=== PATIENT | male | born 1950 | race Caucasian/White ===

== ENCOUNTER 2018-03-19 19:53 | Inpatient (IN) | payer MEDICARE, MEDICAID ==
--- NOTE | 2018-03-19 20:02 | ED Physician Chart ---
ED Chief Complaint/HPI - Patient Information Date Seen:: 03/19/18 Time Seen:: 19:55 Chief Complaint:: agitation History of Present Illness:: Patient's been exhibiting increased agitation at his extended care facility. He has reportedly been yelling a passerby's Historian:: Patient Review:: Nurse's Note Reviewed ED Review of Systems - Review of Systems General/Constitutional: No fever, No chills Skin: No skin lesions Head: No headache Eyes: No loss of vision ENT: No earache Neck: No neck pain, No swelling Cardio Vascular: No chest pain, No palpitations Pulmonary: No SOB GI: No nausea, No vomiting, No diarrhea G/U: No dysuria Musculoskeletal: No bone or joint pain, No back pain, No muscle pain Psychiatric: Prior psych history Hematopoietic: No bruising Allergic/Immuno: No urticaria Neurological: No syncope, No focal symptoms, No weakness ED Past Medical History - Past Medical History Past Medical History: PUD/GERD, Dementia, Other (status post pneumonia; psychosis; anxiety; benign prostatic hypertrophy; cataracts) Family History: Other (unavailable) Social History: Care Facility Surgical History: other (unavailable) Psychiatricy History: Dementia Family Medical History - Family Member Mother History Unknown: Yes ED Physical Exam - Physical Examination General/Constitutional: Alert Other Gen/Cons comments:: Mildly chronically ill-appearing. Patient is confused. He states the year is 1974 Head: Atraumatic Eyes: Lids, conjuctiva normal, PERRL Skin: Nl inspection, No rash, No skin lesions, No ecchymosis ENMT: External ears, nose nl Neck: Nontender Respiratory: Nl effort/Exclusion, Clear to Auscultation Cardio Vascular: RRR, No murmur, gallop, rubs GI: No tenderness/rebounding/guarding, No organomegaly Extremities: Normal digits & nails Neuro/Psych: No focal deficits ED Labs/Radiology/EKG Results - Lab Results Results: Abnormal Lab Results 03/19/18 03/19/18 20:20 20:25 WBC 7.8 RBC 4.25 Hgb 13.0 Hct 37.6 L MCV 88.7 MCH 30.6 MCHC Differential 34.5 RDW 12.9 Plt Count 268 MPV 6.6 Neutrophils % 70.2 Lymphocytes % 19.8 L Monocytes % 6.0 Eosinophils % 3.2 Basophils % 0.8 Sodium 141 Potassium 3.6 Chloride 110 H Carbon Dioxide 22.7 Anion Gap 11.9 BUN 24 Creatinine 1.3 Est GFR ( Amer) > 60.0 Est GFR (Non-Af Amer) 58.5 BUN/Creatinine Ratio 18.5 Glucose 128 H Calcium 9.2 Total Bilirubin 0.3 AST 15 ALT 8 Alkaline Phosphatase 98 Total Protein 7.1 Albumin 4.0 L Globulin 3.1 Albumin/Globulin Ratio 1.3 Triglycerides 215 H Cholesterol 107 LDL Cholesterol Direct 63 L HDL Cholesterol 25 - EKG Interpretations Rate & Rhythm: normal sinus rhythm with a rate of 65 Smock: normal Comments:: T wave changes in leads 1 and aVL ED Septic Shock - . Is Septic Shock (SBP<90, OR Lactate>4 mmol\L) present?: No ED Reassessment (Disposition) - Reassessment Reassessment Condition:: Unchanged - Diagnosis Diagnosis:: Dementia with agitation - Patient Disposition Admitted to:: [facility] Admitting Medical Physician:: Priya Bryant Admitting Psych Physician:: Chet Gurrola Condition at Disposition:: Stable, Unchanged
[2018-03-19 20:30] LABS: % BASOPHILS 0.8 % (0.0-2.0); % EOSINOPHILS 3.2 % (0.0-5.0); % LYMPHOCYTES 19.8 % (20.0-50.0); % NEUTROPHILS 70.2 % (40.0-80.0); BASOPHILE ABSOLUTE 0.1 Th/cumm (0-0.2); EOSINOPHILE ABSOLUTE 0.2 Th/cmm (0.1-0.4); HEMATOCRIT 37.6 % (41.0-60); LYMPHOCYTE ABSOLUTE 1.5 Th/cmm (1.5-3.0); MEAN CELL VOLUME 88.7 fl (80-99); MEAN CORPUSCULAR HEMOGLOBIN 30.6 pg (27.0-31.0); MEAN CORPUSCULAR HGB CONC 34.5 pg (28.0-36.0); MEAN PLATELET VOLUME 6.6 fl; MONOCYTE ABSOLUTE 0.5 Th/cmm (0.3-1.0); NEUTROPHILE ABSOLUTE 5.5 Th/cmm (1.8-8.0); PLATELET COUNT 268 Th/cmm (150-400); RED BLOOD COUNT 4.25 Mil/cmm (3.80-5.80); RED CELL DISTRIBUTION WIDTH 12.9 % (11.5-20.0); WHITE BLOOD COUNT 7.8 Th/cmm (4.8-10.8)
[2018-03-19 20:55] LABS: ALB/GLOB RATIO 1.3 (1.0-1.8); ALKALINE PHOSPHATASE 98 U/L (34-104); ANION GAP 11.9 (7.0-16.0); BILIRUBIN,TOTAL 0.3 mg/dL (0.3-1.0); BUN - UREA NITROGEN 24 mg/dL (7-25); CALCIUM SERUM 9.2 mg/dL (8.6-10.3); CARBON DIOXIDE 22.7 mEq/L (21.0-31.0); CHLORIDE 110 mEq/L (98-107); CHOLESTEROL 107 mg/dL (<200); CREATININE - SERUM 1.3 mg/dL (0.7-1.3); GFR AFRICAN-AMERICAN > 60.0 ml/min (>90); GFR NON AFRICAN-AMERICAN 58.5 ml/min; GLUCOSE 128 mg/dL (70-105); HDL -HIGH DENSITY LIPOPROTEIN 25 mg/dL (23-92); POTASSIUM SERUM 3.6 mEq/L (3.5-5.1); SGOT 15 U/L (13-39); SGPT/ALT 8 U/L (7-52); SODIUM SERUM 141 mEq/L (136-145); TOTAL PROTEIN,SERUM 7.1 gm/dL (6.0-8.3); TRIGLYCERIDES 215 mg/dL (<150)
[2018-03-19 23:05] VITALS: BP 118/51
[2018-03-19] MEDS ORDERED: Maalox 30 mL Cup PO PRN (23:32)
[2018-03-19] MEDS ORDERED: Magnesium Hydroxide (MOM) 30 mL UDC PO PRN (23:32)
[2018-03-19] MEDS ORDERED: Albuterol/Ipratropium Neb 3 ML AERS HHN PRN (23:45)
[2018-03-19] MEDS ORDERED: Acetaminophen 500 MG TAB PO PRN (23:45)
[2018-03-20] MEDS: Pantoprazole 40 mg EC Tab PO SCH (06:42)
[2018-03-20] MEDS: Multivitamin Tab PO SCH (08:25)
[2018-03-20] MEDS: POLYETHYLENE GLYCOL 3350 17 GM PACK PO SCH (08:26)
[2018-03-20] MEDS ORDERED: Non-Formulary Item 1 EA (Omeprazole [Omeprazole] 20 MG) PO SCH (09:00)
[2018-03-20] MEDS: Escitalopram Oxalate 5 mg Tab PO SCH (16:48)
--- NOTE | 2018-03-21 00:53 | Psychiatric Evaluation ---
DATE OF SERVICE: 03/19/2018 PSYCHIATRIC INITIAL EVALUATION AND MENTAL STATUS EXAM AGE: 67. SEX: Male. PHYSICIAN: Dr. Alvarez. CHIEF COMPLAINT: Confusion and agitation. HISTORY OF PRESENT ILLNESS: The patient is a 67-year-old male who was admitted to the hospital because of increased agitation and verbal abuse. The patient is living in [facility]. The patient has been verbally abusive to staff and has been resisting care. The patient also has been easily agitated. The patient also is confused. Chart reviewed and the patient interviewed and discussed the patient's condition with the staff and reviewed records and labs. The patient is almost tearful at times during interview and seems to be confused. The patient did not know the month and the day of his date, but did not know the year. He does not know where he is. Also, was not able to answer any of my questions currently because of confusion and he was talking about his father. Also did not remember his children name, although he told me that he has 3 children. The patient seems to be depressed at times during my interview. PAST PSYCHIATRIC HISTORY: The patient has a history of dementia. PAST MEDICAL HISTORY: The patient has benign prostatic hypertrophy, COPD, gastroesophageal reflux disease, and generalized weakness and cataracts. SOCIAL HISTORY: The patient lives in [facility]. No known alcohol or drug use. No known legal issues or abuse issues. ALLERGIES: PENICILLIN. MENTAL STATUS EXAMINATION: The patient appears slightly older than his stated age. Tearful. Sad affect. In a depressed mood. Thought processes are with poverty of speech and incoherent. The patient did not answer questions regarding hallucinations or delusions, but preoccupied and actively responding. The patient did not answer question regarding suicide or homicide. The patient is alert, but disoriented to time, place, person and situation. Impaired immediate and recent memory were intact remote memory. Poor insight. Poor judgment. ASSESSMENT: PRIMARY DIAGNOSIS: Unspecified psychosis. SECONDARY DIAGNOSIS: Dementia, moderate to severe, with psychotic features. TREATMENT PLAN: We will monitor the patient's behavior and condition closely. We will start individual as well as milieu psychotherapy and behavioral modification. Also, we will start the patient on Lexapro and we will increase olanzapine and will follow up. ESTIMATED LENGTH OF STAY: 4-6 days. THE PATIENT'S STRENGTHS AND WEAKNESSES: The patient has support from [facility]. Weaknesses is his ineffective coping and poor impulse control. AFTER DISCHARGE PLAN: Outpatient treatment and followup will continue in [place]. JOB# [id number]
[2018-03-21] MEDS: Pantoprazole 40 mg EC Tab PO SCH (06:31)
[2018-03-21] MEDS: Escitalopram Oxalate 5 mg Tab PO SCH (09:06)
[2018-03-21] MEDS: Multivitamin Tab PO SCH (09:07)
[2018-03-21] MEDS: POLYETHYLENE GLYCOL 3350 17 GM PACK PO SCH (09:07)
--- NOTE | 2018-03-21 09:20 | History & Physical ---
ADMIT DATE: 03/20/2018 CHIEF COMPLAINT: Agitation. HISTORY OF PRESENT ILLNESS: This is a 67-year-old male who was admitted from a care home facility to [facility] ER due to increase in agitation. REVIEW OF SYSTEMS: GENERAL: This is a 67-year-old male that appears as stated. No weakness. No fever. HEENT: No headache or dizziness. EYES: No eye pain or blurring vision. NECK: No neck pain or nuchal rigidity. CHEST: No chest pain. No palpitation. PULMONARY: No coughing. No shortness of breath. GASTROINTESTINAL: Abdominal pain, no constipation or diarrhea. MUSCULOSKELETAL: No joint pain. No muscle pain. SOCIAL HISTORY: The patient lives in a care home facility prior to hospitalization. PAST MEDICAL HISTORY: Gastroesophageal reflux disease, osteoarthritis. PAST PSYCHIATRIC HISTORY: Includes dementia. PAST SURGICAL HISTORY: Unremarkable. FAMILY HISTORY: Unremarkable. PHYSICAL EXAMINATION: VITAL SIGNS: Temperature 97.6, heart rate 59, blood pressure 150/76, respiratory rate of 18, 100% on room air. GENERAL: This is a 67-year-old male that appears as stated in no acute distress. HEENT: Head is atraumatic, normocephalic. Eyes: Bilateral conjunctivae are clear. Bilateral pupils are equally round and reactive. NECK: Supple. No JVD. CARDIOVASCULAR: S1 and S2, without murmur. PULMONARY: Clear to auscultation. GASTROINTESTINAL: Soft and nontender without guarding. Positive bowel sounds. MUSCULOSKELETAL: No clubbing. No cyanosis noted. ASSESSMENT: 1. Dementia. 2. Osteoarthritis. 3. Gastroesophageal reflux disease. PLAN: We will admit the patient inpatient Psychiatric Unit. We will follow up with a psychiatrist to monitor the patient's condition and behavior. We will do medication reconciliation accordingly. Treatment plans were discussed with the patient's nurse. Treatment plans were discussed with Dr. Bryant. JOB# [id number]
--- NOTE | 2018-03-21 23:22 | Progress Notes ---
DATE: 03/19/[address] Alvarez. Case was discussed with staff of the patient, reviewed records. This is a 67-year-old male who was admitted on 03/19/2018 because of increasing agitation, verbal abuse. He was living at [facility]. He has been verbally abusive to the staff, has been resisting care, has been easily agitated, confused, unable to find a meaningful conversation. He is incontinent. Needs total care with a history of benign prostatic hypertrophy, COPD, GERD, generalized weakness, and cataract. The patient is unpredictable and impulsive. He is allergic to PENICILLIN. DIAGNOSIS: Psychosis, not otherwise specified. Dr. Alvarez initiated, he is on Aricept 10 mg at bedtime, Lexapro initiated yesterday 5 mg daily and he is on Namenda 5 mg twice a day and olanzapine 10 mg at bedtime and 5 mg daily with no side effects with the medication. No sedation, no nausea. I will continue to work with the patient in group therapy, milieu therapy, and adjust the medication as needed. JOB# [id number]
[2018-03-22] MEDS: Pantoprazole 40 mg EC Tab PO SCH (06:48)
[2018-03-22] MEDS: Multivitamin Tab PO SCH (08:39)
[2018-03-22] MEDS: Escitalopram Oxalate 5 mg Tab PO SCH (08:39)
[2018-03-22] MEDS: POLYETHYLENE GLYCOL 3350 17 GM PACK PO SCH (08:39)
--- NOTE | 2018-03-22 08:46 | Internal Medicine Prog Note ---
Internal Medicine Subjective - Subjective Patient seen and examined:: chart reviewed Patient is:: awake Per staff patient has:: no adverse event, tolerating meds Internal Medicine Objective - Results Result Diagrams: 03/19/18 20:20 03/19/18 20:25 Recent Labs: Laboratory Last Values WBC 7.8 Th/cmm (4.8-10.8) 03/19/18 20:20 RBC 4.25 Mil/cmm (3.80-5.80) 03/19/18 20:20 Hgb 13.0 gm/dL (12-16) 03/19/18 20:20 Hct 37.6 % (41.0-60) L 03/19/18 20:20 MCV 88.7 fl (80-99) 03/19/18 20:20 MCH 30.6 pg (27.0-31.0) 03/19/18 20:20 MCHC Differential 34.5 pg (28.0-36.0) 03/19/18 20:20 RDW 12.9 % (11.5-20.0) 03/19/18 20:20 Plt Count 268 Th/cmm (150-400) 03/19/18 20:20 MPV 6.6 fl 03/19/18 20:20 Neutrophils % 70.2 % (40.0-80.0) 03/19/18 20:20 Lymphocytes % 19.8 % (20.0-50.0) L 03/19/18 20:20 Monocytes % 6.0 % (2.0-10.0) 03/19/18 20:20 Eosinophils % 3.2 % (0.0-5.0) 03/19/18 20:20 Basophils % 0.8 % (0.0-2.0) 03/19/18 20:20 Sodium 141 mEq/L (136-145) 03/19/18 20:25 Potassium 3.6 mEq/L (3.5-5.1) 03/19/18 20:25 Chloride 110 mEq/L (98-107) H 03/19/18 20:25 Carbon Dioxide 22.7 mEq/L (21.0-31.0) 03/19/18 20:25 Anion Gap 11.9 (7.0-16.0) 03/19/18 20:25 BUN 24 mg/dL (7-25) 03/19/18 20:25 Creatinine 1.3 mg/dL (0.7-1.3) 03/19/18 20:25 Est GFR ( Amer) > 60.0 ml/min (>90) 03/19/18 20:25 Est GFR (Non-Af Amer) 58.5 ml/min 03/19/18 20:25 BUN/Creatinine Ratio 18.5 03/19/18 20:25 Glucose 128 mg/dL (70-105) H 03/19/18 20:25 Calcium 9.2 mg/dL (8.6-10.3) 03/19/18 20:25 Total Bilirubin 0.3 mg/dL (0.3-1.0) 03/19/18 20:25 AST 15 U/L (13-39) 03/19/18 20:25 ALT 8 U/L (7-52) 03/19/18 20:25 Alkaline Phosphatase 98 U/L (34-104) 03/19/18 20:25 Total Protein 7.1 gm/dL (6.0-8.3) 03/19/18 20:25 Albumin 4.0 gm/dL (4.2-5.5) L 03/19/18 20:25 Globulin 3.1 gm/dL 03/19/18 20:25 Albumin/Globulin Ratio 1.3 (1.0-1.8) 03/19/18 20:25 Triglycerides 215 mg/dL (<150) H 03/19/18 20:25 Cholesterol 107 mg/dL (<200) 03/19/18 20:25 LDL Cholesterol Direct 63 mg/dL (75-193) L 03/19/18 20:25 HDL Cholesterol 25 mg/dL (23-92) 03/19/18 20:25 TSH 2.68 uIU/ml (0.34-5.60) 03/19/18 20:25 - Physical Exam Vitals and I&O: Vital Signs Temp 97.4 F 03/22/18 06:14 Pulse 62 03/22/18 07:32 Resp 12 03/22/18 07:32 BP 125/76 03/22/18 06:14 Pulse Ox 98 03/22/18 07:32 Intake & Output 11/17/18 11/18/18 11/18/18 18:59 06:59 18:59 Other: # Voids 4 # Bowel Movements 2 Active Medications: Current Medications Acetaminophen (Tylenol) 650 mg PO Q4HR PRN PRN Reason: MILD PAIN 1-3 AND FEVER>101.0F Stop: 05/18/18 23:44 Acetaminophen (Tylenol Extra Strength) 1,000 mg PO Q4HR PRN PRN Reason: Pain (Moderate) 4-7 Stop: 05/18/18 23:44 Al Hydrox/Mg Hydrox/Simethicone (Maalox) 30 ml PO Q4HR PRN PRN Reason: GI DISTRESS Stop: 05/18/18 23:31 Albuterol/Ipratropium (Duoneb Neb) 3 ml HHN Q6HR PRN PRN Reason: Shortness of Breath Stop: 05/18/18 23:44 Donepezil HCl (Aricept) 10 mg PO HS KAYY Stop: 05/19/18 20:59 Last Admin: 03/21/18 21:19 Dose: 10 mg Escitalopram Oxalate (Lexapro) 5 mg PO DAILY KAYY; Protocol Stop: 05/19/18 16:59 Last Admin: 03/22/18 08:39 Dose: 5 mg Lorazepam (Ativan) 0.5 mg PO Q4HR PRN; Protocol PRN Reason: Agitation Stop: 04/18/18 23:31 Last Admin: 03/20/18 15:06 Dose: 0.5 mg Magnesium Hydroxide (Milk Of Magnesia) 30 ml PO HS PRN PRN Reason: Constipation Megestrol Acetate (Megace) 400 mg PO DAILY KAYY Stop: 05/19/18 08:59 Last Admin: 03/22/18 08:39 Dose: 400 mg Memantine (Namenda) 5 mg PO BID KAYY Stop: 05/19/18 08:59 Last Admin: 03/22/18 08:40 Dose: 5 mg Multivitamins/Vitamin C (Theragran) 1 tab PO DAILY KAYY Stop: 05/19/18 08:59 Last Admin: 03/22/18 08:39 Dose: 1 tab Olanzapine (Zyprexa) 10 mg PO HS KAYY; Protocol Stop: 05/19/18 20:59 Last Admin: 03/21/18 21:19 Dose: 10 mg Olanzapine (Zyprexa) 5 mg PO DAILY KAYY; Protocol Stop: 05/20/18 08:59 Last Admin: 03/22/18 08:39 Dose: 5 mg Pantoprazole Sodium (Protonix) 40 mg PO QDAC KAYY Stop: 05/19/18 07:29 Last Admin: 03/22/18 06:48 Dose: 40 mg Polyethylene Glycol (Miralax) 17 gm PO DAILY KAYY Stop: 05/19/18 08:59 Last Admin: 03/22/18 08:39 Dose: 17 gm Senna (Senna) 8.6 mg PO HS KAYY Stop: 05/19/18 20:59 Last Admin: 03/21/18 21:19 Dose: 8.6 mg Zolpidem Tartrate (Ambien) 5 mg PO HS PRN PRN Reason: Insomnia Stop: 05/18/18 23:31 Last Admin: 03/20/18 21:25 Dose: 5 mg General: other (awake ,anxious) HEENT: NC/AT Neck: Supple Lungs: CTAB Cardiovascular: RRR, Normal S1, Normal S2 Abdomen: soft, non-tender Extremities: clear, edema Internal Medicine Assmt/Plan - Assessment Assessment: dementia oa gerd - Plan Plan: as per psych will monitor
--- NOTE | 2018-03-22 20:37 | Progress Notes ---
DATE: 03/19/2018 SUBJECTIVE: Case was discussed with staff of the patient, reviewed records. The patient continues to be confused, demented, and easily agitated. He continues to be verbally abusive to the staff. He is unable to make safe plan for self-care or participate in a meaningful conversation. He is sleeping better, eating better. No side effects with the medication, no sedation, and no nausea. We will continue to work with the patient in group therapy, milieu therapy, and adjust the medications as needed. JOB# [id number]
[2018-03-23] MEDS: Pantoprazole 40 mg EC Tab PO SCH (06:37)
[2018-03-23] MEDS: POLYETHYLENE GLYCOL 3350 17 GM PACK PO SCH (08:30)
[2018-03-23] MEDS: Multivitamin Tab PO SCH (08:30)
[2018-03-23] MEDS: Escitalopram Oxalate 5 mg Tab PO SCH (08:30)
--- NOTE | 2018-03-23 10:33 | Internal Medicine Prog Note ---
Internal Medicine Subjective - Subjective Patient seen and examined:: chart reviewed Patient is:: awake, confused (still confused ) Per staff patient has:: no adverse event, tolerating meds Internal Medicine Objective - Results Result Diagrams: 03/19/18 20:20 03/19/18 20:25 Recent Labs: Laboratory Last Values WBC 7.8 Th/cmm (4.8-10.8) 03/19/18 20:20 RBC 4.25 Mil/cmm (3.80-5.80) 03/19/18 20:20 Hgb 13.0 gm/dL (12-16) 03/19/18 20:20 Hct 37.6 % (41.0-60) L 03/19/18 20:20 MCV 88.7 fl (80-99) 03/19/18 20:20 MCH 30.6 pg (27.0-31.0) 03/19/18 20:20 MCHC Differential 34.5 pg (28.0-36.0) 03/19/18 20:20 RDW 12.9 % (11.5-20.0) 03/19/18 20:20 Plt Count 268 Th/cmm (150-400) 03/19/18 20:20 MPV 6.6 fl 03/19/18 20:20 Neutrophils % 70.2 % (40.0-80.0) 03/19/18 20:20 Lymphocytes % 19.8 % (20.0-50.0) L 03/19/18 20:20 Monocytes % 6.0 % (2.0-10.0) 03/19/18 20:20 Eosinophils % 3.2 % (0.0-5.0) 03/19/18 20:20 Basophils % 0.8 % (0.0-2.0) 03/19/18 20:20 Sodium 141 mEq/L (136-145) 03/19/18 20:25 Potassium 3.6 mEq/L (3.5-5.1) 03/19/18 20:25 Chloride 110 mEq/L (98-107) H 03/19/18 20:25 Carbon Dioxide 22.7 mEq/L (21.0-31.0) 03/19/18 20:25 Anion Gap 11.9 (7.0-16.0) 03/19/18 20:25 BUN 24 mg/dL (7-25) 03/19/18 20:25 Creatinine 1.3 mg/dL (0.7-1.3) 03/19/18 20:25 Est GFR ( Amer) > 60.0 ml/min (>90) 03/19/18 20:25 Est GFR (Non-Af Amer) 58.5 ml/min 03/19/18 20:25 BUN/Creatinine Ratio 18.5 03/19/18 20:25 Glucose 128 mg/dL (70-105) H 03/19/18 20:25 Calcium 9.2 mg/dL (8.6-10.3) 03/19/18 20:25 Total Bilirubin 0.3 mg/dL (0.3-1.0) 03/19/18 20:25 AST 15 U/L (13-39) 03/19/18 20:25 ALT 8 U/L (7-52) 03/19/18 20:25 Alkaline Phosphatase 98 U/L (34-104) 03/19/18 20:25 Total Protein 7.1 gm/dL (6.0-8.3) 03/19/18 20:25 Albumin 4.0 gm/dL (4.2-5.5) L 03/19/18 20:25 Globulin 3.1 gm/dL 03/19/18 20:25 Albumin/Globulin Ratio 1.3 (1.0-1.8) 03/19/18 20:25 Triglycerides 215 mg/dL (<150) H 03/19/18 20:25 Cholesterol 107 mg/dL (<200) 03/19/18 20:25 LDL Cholesterol Direct 63 mg/dL (75-193) L 03/19/18 20:25 HDL Cholesterol 25 mg/dL (23-92) 03/19/18 20:25 TSH 2.68 uIU/ml (0.34-5.60) 03/19/18 20:25 - Physical Exam Vitals and I&O: Vital Signs Temp 97.2 F 03/23/18 06:24 Pulse 76 03/23/18 07:46 Resp 18 03/23/18 07:46 BP 126/72 03/23/18 06:24 Pulse Ox 99 03/23/18 07:46 Intake & Output 03/22/18 03/23/18 03/23/18 18:59 06:59 18:59 Intake Total 1200 120 Balance 1200 120 Intake: Oral 1200 120 Other: # Voids 3 3 # Bowel Movements 1 Active Medications: Current Medications Acetaminophen (Tylenol) 650 mg PO Q4HR PRN PRN Reason: MILD PAIN 1-3 AND FEVER>101.0F Stop: 05/18/18 23:44 Acetaminophen (Tylenol Extra Strength) 1,000 mg PO Q4HR PRN PRN Reason: Pain (Moderate) 4-7 Stop: 05/18/18 23:44 Al Hydrox/Mg Hydrox/Simethicone (Maalox) 30 ml PO Q4HR PRN PRN Reason: GI DISTRESS Stop: 05/18/18 23:31 Albuterol/Ipratropium (Duoneb Neb) 3 ml HHN Q6HR PRN PRN Reason: Shortness of Breath Stop: 05/18/18 23:44 Donepezil HCl (Aricept) 10 mg PO HS [facility] Stop: 05/19/18 20:59 Last Admin: 03/22/18 21:07 Dose: 10 mg Escitalopram Oxalate (Lexapro) 5 mg PO DAILY KAYY; Protocol Stop: 05/19/18 16:59 Last Admin: 03/23/18 08:30 Dose: 5 mg Lorazepam (Ativan) 0.5 mg PO Q4HR PRN; Protocol PRN Reason: Agitation Stop: 04/18/18 23:31 Last Admin: 03/23/18 08:30 Dose: 0.5 mg Magnesium Hydroxide (Milk Of Magnesia) 30 ml PO HS PRN PRN Reason: Constipation Megestrol Acetate (Megace) 400 mg PO DAILY KAYY Stop: 05/19/18 08:59 Last Admin: 03/23/18 08:30 Dose: 400 mg Memantine (Namenda) 5 mg PO BID KAYY Stop: 05/19/18 08:59 Last Admin: 03/23/18 08:30 Dose: 5 mg Multivitamins/Vitamin C (Theragran) 1 tab PO DAILY KAYY Stop: 05/19/18 08:59 Last Admin: 03/23/18 08:30 Dose: 1 tab Olanzapine (Zyprexa) 10 mg PO HS [facility]; Protocol Stop: 05/19/18 20:59 Last Admin: 03/22/18 21:07 Dose: 10 mg Olanzapine (Zyprexa) 5 mg PO DAILY KAYY; Protocol Stop: 05/20/18 08:59 Last Admin: 03/23/18 08:30 Dose: 5 mg Pantoprazole Sodium (Protonix) 40 mg PO QDAC KAYY Stop: 05/19/18 07:29 Last Admin: 03/23/18 06:37 Dose: 40 mg Polyethylene Glycol (Miralax) 17 gm PO DAILY KAYY Stop: 05/19/18 08:59 Last Admin: 03/23/18 08:30 Dose: 17 gm Senna (Senna) 8.6 mg PO HS KAYY Stop: 05/19/18 20:59 Last Admin: 03/22/18 21:08 Dose: 8.6 mg Zolpidem Tartrate (Ambien) 5 mg PO HS PRN PRN Reason: Insomnia Stop: 05/18/18 23:31 Last Admin: 03/22/18 21:08 Dose: 5 mg General: other (awake ,anxious) HEENT: NC/AT Neck: Supple Lungs: CTAB Cardiovascular: RRR, Normal S1, Normal S2 Abdomen: soft, non-tender Extremities: clear, edema Internal Medicine Assmt/Plan - Assessment Assessment: dementia oa gerd - Plan Plan: as per psych will monitor
--- NOTE | 2018-03-24 02:07 | Progress Notes ---
DATE: 03/19/2018 SUBJECTIVE: Chart reviewed and the patient interviewed. Also, discussed the patient's condition with the staff and reviewed records and labs. The patient is still easily agitated and he is still in angry and in irritable moods. Also, is still interacting minimally with others. He also still needs lots of redirections. Otherwise, the patient is cooperative and compliant with taking his medications with no side effects of medications. ASSESSMENT: The patient is still agitated and psychotic. TREATMENT PLAN: Continue monitoring his behavior and his medications and continue working on his anxiety. We will continue to follow up. JOB# [id number]
[2018-03-24] MEDS: Pantoprazole 40 mg EC Tab PO SCH (07:04)
[2018-03-24] MEDS: POLYETHYLENE GLYCOL 3350 17 GM PACK PO SCH (08:52)
[2018-03-24] MEDS: Escitalopram Oxalate 5 mg Tab PO SCH (08:54)
[2018-03-24] MEDS: Multivitamin Tab PO SCH (08:54)
--- NOTE | 2018-03-24 20:35 | Internal Medicine Prog Note ---
Internal Medicine Subjective - Subjective Service Date: 03/24/18 Patient is:: awake, confused (still confused ) Per staff patient has:: no adverse event, tolerating meds Internal Medicine Objective - Results Result Diagrams: 03/19/18 20:20 03/19/18 20:25 Recent Labs: Laboratory Last Values WBC 7.8 Th/cmm (4.8-10.8) 03/19/18 20:20 RBC 4.25 Mil/cmm (3.80-5.80) 03/19/18 20:20 Hgb 13.0 gm/dL (12-16) 03/19/18 20:20 Hct 37.6 % (41.0-60) L 03/19/18 20:20 MCV 88.7 fl (80-99) 03/19/18 20:20 MCH 30.6 pg (27.0-31.0) 03/19/18 20:20 MCHC Differential 34.5 pg (28.0-36.0) 03/19/18 20:20 RDW 12.9 % (11.5-20.0) 03/19/18 20:20 Plt Count 268 Th/cmm (150-400) 03/19/18 20:20 MPV 6.6 fl 03/19/18 20:20 Neutrophils % 70.2 % (40.0-80.0) 03/19/18 20:20 Lymphocytes % 19.8 % (20.0-50.0) L 03/19/18 20:20 Monocytes % 6.0 % (2.0-10.0) 03/19/18 20:20 Eosinophils % 3.2 % (0.0-5.0) 03/19/18 20:20 Basophils % 0.8 % (0.0-2.0) 03/19/18 20:20 Sodium 141 mEq/L (136-145) 03/19/18 20:25 Potassium 3.6 mEq/L (3.5-5.1) 03/19/18 20:25 Chloride 110 mEq/L (98-107) H 03/19/18 20:25 Carbon Dioxide 22.7 mEq/L (21.0-31.0) 03/19/18 20:25 Anion Gap 11.9 (7.0-16.0) 03/19/18 20:25 BUN 24 mg/dL (7-25) 03/19/18 20:25 Creatinine 1.3 mg/dL (0.7-1.3) 03/19/18 20:25 Est GFR ( Amer) > 60.0 ml/min (>90) 03/19/18 20:25 Est GFR (Non-Af Amer) 58.5 ml/min 03/19/18 20:25 BUN/Creatinine Ratio 18.5 03/19/18 20:25 Glucose 128 mg/dL (70-105) H 03/19/18 20:25 Calcium 9.2 mg/dL (8.6-10.3) 03/19/18 20:25 Total Bilirubin 0.3 mg/dL (0.3-1.0) 03/19/18 20:25 AST 15 U/L (13-39) 03/19/18 20:25 ALT 8 U/L (7-52) 03/19/18 20:25 Alkaline Phosphatase 98 U/L (34-104) 03/19/18 20:25 Total Protein 7.1 gm/dL (6.0-8.3) 03/19/18 20:25 Albumin 4.0 gm/dL (4.2-5.5) L 03/19/18 20:25 Globulin 3.1 gm/dL 03/19/18 20:25 Albumin/Globulin Ratio 1.3 (1.0-1.8) 03/19/18 20:25 Triglycerides 215 mg/dL (<150) H 03/19/18 20:25 Cholesterol 107 mg/dL (<200) 03/19/18 20:25 LDL Cholesterol Direct 63 mg/dL (75-193) L 03/19/18 20:25 HDL Cholesterol 25 mg/dL (23-92) 03/19/18 20:25 TSH 2.68 uIU/ml (0.34-5.60) 03/19/18 20:25 - Physical Exam Vitals and I&O: Vital Signs Temp 97.4 F 03/24/18 20:11 Pulse 69 03/24/18 20:11 Resp 19 03/24/18 20:11 BP 120/70 03/24/18 20:11 Pulse Ox 98 03/24/18 20:11 Intake & Output 03/24/18 03/24/18 03/25/18 06:59 18:59 06:59 Intake Total 360 850 120 Output Total 1 Balance 359 850 120 Intake: Oral 360 850 120 Output: Urine/Stool Mix 1 Other: # Voids 1 4 3 # Bowel Movements 0 1 0 Active Medications: Current Medications Acetaminophen (Tylenol) 650 mg PO Q4HR PRN PRN Reason: MILD PAIN 1-3 AND FEVER>101.0F Stop: 05/18/18 23:44 Acetaminophen (Tylenol Extra Strength) 1,000 mg PO Q4HR PRN PRN Reason: Pain (Moderate) 4-7 Stop: 05/18/18 23:44 Al Hydrox/Mg Hydrox/Simethicone (Maalox) 30 ml PO Q4HR PRN PRN Reason: GI DISTRESS Stop: 05/18/18 23:31 Albuterol/Ipratropium (Duoneb Neb) 3 ml HHN Q6HR PRN PRN Reason: Shortness of Breath Stop: 05/18/18 23:44 Donepezil HCl (Aricept) 10 mg PO HS [facility] Stop: 05/19/18 20:59 Last Admin: 03/23/18 21:38 Dose: 10 mg Escitalopram Oxalate (Lexapro) 5 mg PO DAILY [facility]; Protocol Stop: 05/19/18 16:59 Last Admin: 03/24/18 08:54 Dose: 5 mg Lorazepam (Ativan) 0.5 mg PO Q4HR PRN; Protocol PRN Reason: Agitation Stop: 04/18/18 23:31 Last Admin: 03/24/18 16:24 Dose: 0.5 mg Magnesium Hydroxide (Milk Of Magnesia) 30 ml PO HS PRN PRN Reason: Constipation Megestrol Acetate (Megace) 400 mg PO DAILY [facility] Stop: 05/19/18 08:59 Last Admin: 03/24/18 08:54 Dose: 400 mg Memantine (Namenda) 5 mg PO BID [facility] Stop: 05/19/18 08:59 Last Admin: 03/24/18 16:24 Dose: 5 mg Multivitamins/Vitamin C (Theragran) 1 tab PO DAILY [facility] Stop: 05/19/18 08:59 Last Admin: 03/24/18 08:54 Dose: 1 tab Olanzapine (Zyprexa) 10 mg PO HS [facility]; Protocol Stop: 05/19/18 20:59 Last Admin: 03/23/18 21:39 Dose: 10 mg Olanzapine (Zyprexa) 5 mg PO DAILY [facility]; Protocol Stop: 05/20/18 08:59 Last Admin: 03/24/18 08:55 Dose: 5 mg Pantoprazole Sodium (Protonix) 40 mg PO QDAC [facility] Stop: 05/19/18 07:29 Last Admin: 03/24/18 07:04 Dose: Not Given Polyethylene Glycol (Miralax) 17 gm PO DAILY [facility] Stop: 05/19/18 08:59 Last Admin: 03/24/18 08:52 Dose: 17 gm Senna (Senna) 8.6 mg PO HS [facility] Stop: 05/19/18 20:59 Last Admin: 03/23/18 21:39 Dose: 8.6 mg Zolpidem Tartrate (Ambien) 5 mg PO HS PRN PRN Reason: Insomnia Stop: 05/18/18 23:31 Last Admin: 03/23/18 21:39 Dose: 5 mg General: other (awake ,anxious) HEENT: NC/AT Neck: Supple Lungs: CTAB Cardiovascular: RRR, Normal S1, Normal S2 Abdomen: soft, non-tender Extremities: clear, edema Internal Medicine Assmt/Plan - Assessment Assessment: dementia oa gerd - Plan Plan: as per psych will monitor Nutritional Asmnt/Malnutr-PDOC - Dietary Evaluation Malnutrition Findings (Please click <Entered> for more info): Nutritional Asmnt/Malnutrition Start: 03/23/18 12: 57 Text: Status: Complete Freq: Protocol: Document 03/23/18 12:58 SHWETA (Rec: 03/23/18 13:17 SHWETA MCCALLUM) Nutritional Asmnt/Malnutrition Patient General Information Nutritional Screening Moderate Risk Diagnosis psychosis Pertinent Medical Hx/Surgical Hx PUD/GERD, osteoarthritis, dementia, s/p pneumonia, psychosis, anxiety, BPH, cataracts Subjective Information Pt sleeping at time of visit. Nursing noted PO intake: 75- 100%. Current Diet Order/ Nutrition Support regular Pertinent Medications megace, theragran, protonix, miralax, senna, zyprexa Pertinent Labs 03/19: glucose 128, Cl 110, Alb 4.0, triglycerides 215 Nutritional Hx/Data Height 1.8 m Height (Calculated Centimeters) 180.3 Current Weight (lbs) 83.915 kg Weight (Calculated Kilograms) 83.9 Weight (Calculated Grams) 53019.6 [place] Body Weight 172 lb Body Mass Index (BMI) 25.7 Weight Status Overweight GI Symptoms GI Symptoms None Last BM 03/22 Difficult in: None Food Allergies No Skin Integrity/Comment: intact, diana 16 Current %PO Good (75-100%) Estimated Nutritional Goals BEE in Kcals: Using Current wt Calories/Kcals/Kg 23-27 Kcals Calculated 6750-3184 Protein: Using Current wt Protein g/k.8-1 Protein Calculated 67-84 g Fluid: ml 2224-4869 (1 ml/kcal) Nutritional Problem No current Nutrition Prob Problem no nutrition dx at this time Malnutrition Alert Is there a minimum of two criteria No selected? Query Text:Check all the applicable criteria. A minimum of two criteria are recommended for diagnosis of either severe or non-severe malnutrition. Malnutrition Related to Morbid Obesity Malnutrition related to morbid obesity No Intervention/Recommendation Comments 1. Continue with regular diet as ordered 2. Monitor PO intake, wt, labs and skin integrity 3. F/U as low risk in 7 days, 03/30 Expected Outcomes/Goals Expected Outcomes/Goals 1. PO intake to continue meeting at least 75% of all meals 2. Wt stability, skin to remain intact, labs to approach normal limits Reviewed by Zofia Winn RD
[2018-03-25] MEDS: Pantoprazole 40 mg EC Tab PO SCH (06:30)
[2018-03-25] MEDS: POLYETHYLENE GLYCOL 3350 17 GM PACK PO SCH (09:55)
[2018-03-25] MEDS: Multivitamin Tab PO SCH (09:56)
--- NOTE | 2018-03-25 12:28 | Internal Medicine Prog Note ---
Internal Medicine Subjective - Subjective Patient seen and examined:: chart reviewed Patient is:: awake, confused (still confused ) Per staff patient has:: no adverse event, tolerating meds Internal Medicine Objective - Results Result Diagrams: 03/19/18 20:20 03/19/18 20:25 Recent Labs: Laboratory Last Values WBC 7.8 Th/cmm (4.8-10.8) 03/19/18 20:20 RBC 4.25 Mil/cmm (3.80-5.80) 03/19/18 20:20 Hgb 13.0 gm/dL (12-16) 03/19/18 20:20 Hct 37.6 % (41.0-60) L 03/19/18 20:20 MCV 88.7 fl (80-99) 03/19/18 20:20 MCH 30.6 pg (27.0-31.0) 03/19/18 20:20 MCHC Differential 34.5 pg (28.0-36.0) 03/19/18 20:20 RDW 12.9 % (11.5-20.0) 03/19/18 20:20 Plt Count 268 Th/cmm (150-400) 03/19/18 20:20 MPV 6.6 fl 03/19/18 20:20 Neutrophils % 70.2 % (40.0-80.0) 03/19/18 20:20 Lymphocytes % 19.8 % (20.0-50.0) L 03/19/18 20:20 Monocytes % 6.0 % (2.0-10.0) 03/19/18 20:20 Eosinophils % 3.2 % (0.0-5.0) 03/19/18 20:20 Basophils % 0.8 % (0.0-2.0) 03/19/18 20:20 Sodium 141 mEq/L (136-145) 03/19/18 20:25 Potassium 3.6 mEq/L (3.5-5.1) 03/19/18 20:25 Chloride 110 mEq/L (98-107) H 03/19/18 20:25 Carbon Dioxide 22.7 mEq/L (21.0-31.0) 03/19/18 20:25 Anion Gap 11.9 (7.0-16.0) 03/19/18 20:25 BUN 24 mg/dL (7-25) 03/19/18 20:25 Creatinine 1.3 mg/dL (0.7-1.3) 03/19/18 20:25 Est GFR ( Amer) > 60.0 ml/min (>90) 03/19/18 20:25 Est GFR (Non-Af Amer) 58.5 ml/min 03/19/18 20:25 BUN/Creatinine Ratio 18.5 03/19/18 20:25 Glucose 128 mg/dL (70-105) H 03/19/18 20:25 Calcium 9.2 mg/dL (8.6-10.3) 03/19/18 20:25 Total Bilirubin 0.3 mg/dL (0.3-1.0) 03/19/18 20:25 AST 15 U/L (13-39) 03/19/18 20:25 ALT 8 U/L (7-52) 03/19/18 20:25 Alkaline Phosphatase 98 U/L (34-104) 03/19/18 20:25 Total Protein 7.1 gm/dL (6.0-8.3) 03/19/18 20:25 Albumin 4.0 gm/dL (4.2-5.5) L 03/19/18 20:25 Globulin 3.1 gm/dL 03/19/18 20:25 Albumin/Globulin Ratio 1.3 (1.0-1.8) 03/19/18 20:25 Triglycerides 215 mg/dL (<150) H 03/19/18 20:25 Cholesterol 107 mg/dL (<200) 03/19/18 20:25 LDL Cholesterol Direct 63 mg/dL (75-193) L 03/19/18 20:25 HDL Cholesterol 25 mg/dL (23-92) 03/19/18 20:25 TSH 2.68 uIU/ml (0.34-5.60) 03/19/18 20:25 - Physical Exam Vitals and I&O: Vital Signs Temp 97.5 F 03/25/18 06:22 Pulse 58 03/25/18 06:22 Resp 19 03/25/18 06:22 BP 132/71 03/25/18 06:22 Pulse Ox 96 03/25/18 06:22 Intake & Output 03/24/18 03/25/18 03/25/18 18:59 06:59 18:59 Intake Total 850 240 Balance 850 240 Intake: Oral 850 240 Other: # Voids 4 2 # Bowel Movements 1 1 Active Medications: Current Medications Acetaminophen (Tylenol) 650 mg PO Q4HR PRN PRN Reason: MILD PAIN 1-3 AND FEVER>101.0F Stop: 05/18/18 23:44 Acetaminophen (Tylenol Extra Strength) 1,000 mg PO Q4HR PRN PRN Reason: Pain (Moderate) 4-7 Stop: 05/18/18 23:44 Al Hydrox/Mg Hydrox/Simethicone (Maalox) 30 ml PO Q4HR PRN PRN Reason: GI DISTRESS Stop: 05/18/18 23:31 Albuterol/Ipratropium (Duoneb Neb) 3 ml HHN Q6HR PRN PRN Reason: Shortness of Breath Stop: 05/18/18 23:44 Donepezil HCl (Aricept) 10 mg PO HS [facility] Stop: 05/19/18 20:59 Last Admin: 03/24/18 21:19 Dose: 10 mg Escitalopram Oxalate (Lexapro) 10 mg PO DAILY [facility]; Protocol Stop: 05/24/18 08:59 Last Admin: 03/25/18 09:56 Dose: 10 mg Lorazepam (Ativan) 0.5 mg PO Q4HR PRN; Protocol PRN Reason: Agitation Stop: 04/18/18 23:31 Last Admin: 03/24/18 16:24 Dose: 0.5 mg Magnesium Hydroxide (Milk Of Magnesia) 30 ml PO HS PRN PRN Reason: Constipation Megestrol Acetate (Megace) 400 mg PO DAILY [facility] Stop: 05/19/18 08:59 Last Admin: 03/25/18 09:55 Dose: 400 mg Memantine (Namenda) 5 mg PO BID [facility] Stop: 05/19/18 08:59 Last Admin: 03/25/18 09:56 Dose: 5 mg Multivitamins/Vitamin C (Theragran) 1 tab PO DAILY [facility] Stop: 05/19/18 08:59 Last Admin: 03/25/18 09:56 Dose: 1 tab Olanzapine (Zyprexa) 10 mg PO HS [facility]; Protocol Stop: 05/19/18 20:59 Last Admin: 11/20/18 21:19 Dose: 10 mg Olanzapine (Zyprexa) 5 mg PO DAILY [facility]; Protocol Stop: 05/20/18 08:59 Last Admin: 03/25/18 09:56 Dose: 5 mg Pantoprazole Sodium (Protonix) 40 mg PO QDAC [facility] Stop: 05/19/18 07:29 Last Admin: 03/25/18 06:30 Dose: 40 mg Polyethylene Glycol (Miralax) 17 gm PO DAILY [facility] Stop: 05/19/18 08:59 Last Admin: 03/25/18 09:55 Dose: 17 gm Senna (Senna) 8.6 mg PO HS [facility] Stop: 05/19/18 20:59 Last Admin: 03/24/18 21:19 Dose: 8.6 mg Zolpidem Tartrate (Ambien) 5 mg PO HS PRN PRN Reason: Insomnia Stop: 05/18/18 23:31 Last Admin: 03/23/18 21:39 Dose: 5 mg General: other (awake ,anxious) HEENT: NC/AT Neck: Supple Lungs: CTAB Cardiovascular: RRR, Normal S1, Normal S2 Abdomen: soft, non-tender Extremities: clear, edema Internal Medicine Assmt/Plan - Assessment Assessment: dementia oa gerd - Plan Plan: as per psych will monitor Nutritional Asmnt/Malnutr-PDOC - Dietary Evaluation Malnutrition Findings (Please click <Entered> for more info): Nutritional Asmnt/Malnutrition Start: 03/23/18 12: 57 Text: Status: Complete Freq: Protocol: Document 03/23/18 12:58 SHWETA (Rec: 03/23/18 13:17 SHWETA MCCALLUM) Nutritional Asmnt/Malnutrition Patient General Information Nutritional Screening Moderate Risk Diagnosis psychosis Pertinent Medical Hx/Surgical Hx PUD/GERD, osteoarthritis, dementia, s/p pneumonia, psychosis, anxiety, BPH, cataracts Subjective Information Pt sleeping at time of visit. Nursing noted PO intake: 75- 100%. Current Diet Order/ Nutrition Support regular Pertinent Medications megace, theragran, protonix, miralax, senna, zyprexa Pertinent Labs 03/19: glucose 128, Cl 110, Alb 4.0, triglycerides 215 Nutritional Hx/Data Height 1.8 m Height (Calculated Centimeters) 180.3 Current Weight (lbs) 83.915 kg Weight (Calculated Kilograms) 83.9 Weight (Calculated Grams) 11927.6 [place] Body Weight 172 lb Body Mass Index (BMI) 25.7 Weight Status Overweight GI Symptoms GI Symptoms None Last BM 03/22 Difficult in: None Food Allergies No Skin Integrity/Comment: diana castillo Current %PO Good (75-100%) Estimated Nutritional Goals BEE in Kcals: Using Current wt Calories/Kcals/Kg 23-27 Kcals Calculated 2775-6945 Protein: Using Current wt Protein g/k.8-1 Protein Calculated 67-84 g Fluid: ml 2655-7872 (1 ml/kcal) Nutritional Problem No current Nutrition Prob Problem no nutrition dx at this time Malnutrition Alert Is there a minimum of two criteria No selected? Query Text:Check all the applicable criteria. A minimum of two criteria are recommended for diagnosis of either severe or non-severe malnutrition. Malnutrition Related to Morbid Obesity Malnutrition related to morbid obesity No Intervention/Recommendation Comments 1. Continue with regular diet as ordered 2. Monitor PO intake, wt, labs and skin integrity 3. F/U as low risk in 7 days, 03/30 Expected Outcomes/Goals Expected Outcomes/Goals 1. PO intake to continue meeting at least 75% of all meals 2. Wt stability, skin to remain intact, labs to approach normal limits Reviewed by Zofia Winn RD
--- NOTE | 2018-03-25 17:24 | Progress Notes ---
DATE: DATE OF SERVICE: 03/25/2018. SUBJECTIVE: A 67-year-old male admitted because of increased agitation, verbally abusing staff. On [id number], the patient is very confused, disoriented, only knows he is in [place], does not know where he is or what is going on. Seems to be mumbling to self, mostly keeps to himself. No current agitation and escalation of behaviors. He has been calmer, likely approaching his baseline. ASSESSMENT: The patient highly confused, disoriented, but calmer and no longer aggressive or agitated, mostly forgetful. He is more redirectable. PLAN: We will continue to monitor. The patient likely approaching his baseline per senior manager creative services note, the patient coming in from [facility]. JOB# [id number]
--- NOTE | 2018-03-26 00:24 | Progress Notes ---
DATE: 03/24/2018 SUBJECTIVE: Chart reviewed and the patient interviewed. Also, discussed the patient's condition with the staff and reviewed records and labs. The patient is still easily agitated and he is still in irritable mood. The patient also is still depressed and still feeling hopeless and helpless. He also still needs redirections and still have episodes of anger. Otherwise, the patient is compliant with taking his medications with no side effects. ASSESSMENT: The patient is depressed and is still agitated. TREATMENT PLAN: Continue to monitor behavior closely and continue to follow up. JOB# [id number]
--- NOTE | 2018-03-26 01:05 | Progress Notes ---
DATE: 03/19/2018 PSYCHIATRIC PROGRESS NOTE SUBJECTIVE: Chart reviewed and the patient interviewed. Also, discussed the patient's condition with the staff and reviewed records and labs. The patient remains in a depressed mood. The patient is interacting minimally with others. He still has episodes of agitation and anger. He also is having mood swings. The patient also is forgetful and needs redirections. ASSESSMENT: The patient is still depressed and in irritable mood. TREATMENT PLAN: We will increase Lexapro to 10 mg every day. We will continue monitoring behavior and continue to follow up. JOB# [id number]
[2018-03-26] MEDS: Pantoprazole 40 mg EC Tab PO SCH (06:50)
[2018-03-26] MEDS: POLYETHYLENE GLYCOL 3350 17 GM PACK PO SCH (10:00)
[2018-03-26] MEDS: Multivitamin Tab PO SCH (10:00)
--- NOTE | 2018-03-27 02:01 | Progress Notes ---
DATE: 03/26/2018 SUBJECTIVE: Chart reviewed and the patient interviewed. Also discussed the patient's condition with the staff and reviewed records and labs. The patient seems to be slightly calmer, but he still has labile affect. The patient also is cooperative with his medications. The patient also is still confused and his affect is labile. The patient also is interacting minimally with peers and with others. The patient denies any suicidal or homicidal ideations, but is still easily agitated and confused. Otherwise, the patient is compliant with taking his medications with no side effect of medications. ASSESSMENT: The patient is still agitated, psychotic, and needs close monitoring. TREATMENT PLAN: Continue to monitor his behavior and his condition closely. Also, continue adjusting psychotropic medications and working on behavioral modification. JOB# [id number]
[2018-03-27] MEDS: Pantoprazole 40 mg EC Tab PO SCH (06:30)
--- NOTE | 2018-03-27 08:37 | Internal Medicine Prog Note ---
Internal Medicine Subjective - Subjective Patient seen and examined:: chart reviewed Patient is:: awake, confused (still confused ), other (irritable ) Per staff patient has:: no adverse event, tolerating meds Internal Medicine Objective - Results Result Diagrams: 03/19/18 20:20 03/19/18 20:25 Recent Labs: Laboratory Last Values WBC 7.8 Th/cmm (4.8-10.8) 03/19/18 20:20 RBC 4.25 Mil/cmm (3.80-5.80) 03/19/18 20:20 Hgb 13.0 gm/dL (12-16) 03/19/18 20:20 Hct 37.6 % (41.0-60) L 03/19/18 20:20 MCV 88.7 fl (80-99) 03/19/18 20:20 MCH 30.6 pg (27.0-31.0) 03/19/18 20:20 MCHC Differential 34.5 pg (28.0-36.0) 03/19/18 20:20 RDW 12.9 % (11.5-20.0) 03/19/18 20:20 Plt Count 268 Th/cmm (150-400) 03/19/18 20:20 MPV 6.6 fl 03/19/18 20:20 Neutrophils % 70.2 % (40.0-80.0) 03/19/18 20:20 Lymphocytes % 19.8 % (20.0-50.0) L 03/19/18 20:20 Monocytes % 6.0 % (2.0-10.0) 03/19/18 20:20 Eosinophils % 3.2 % (0.0-5.0) 03/19/18 20:20 Basophils % 0.8 % (0.0-2.0) 03/19/18 20:20 Sodium 141 mEq/L (136-145) 03/19/18 20:25 Potassium 3.6 mEq/L (3.5-5.1) 03/19/18 20:25 Chloride 110 mEq/L (98-107) H 03/19/18 20:25 Carbon Dioxide 22.7 mEq/L (21.0-31.0) 03/19/18 20:25 Anion Gap 11.9 (7.0-16.0) 03/19/18 20:25 BUN 24 mg/dL (7-25) 03/19/18 20:25 Creatinine 1.3 mg/dL (0.7-1.3) 03/19/18 20:25 Est GFR ( Amer) > 60.0 ml/min (>90) 03/19/18 20:25 Est GFR (Non-Af Amer) 58.5 ml/min 03/19/18 20:25 BUN/Creatinine Ratio 18.5 03/19/18 20:25 Glucose 128 mg/dL (70-105) H 03/19/18 20:25 Calcium 9.2 mg/dL (8.6-10.3) 03/19/18 20:25 Total Bilirubin 0.3 mg/dL (0.3-1.0) 03/19/18 20:25 AST 15 U/L (13-39) 03/19/18 20:25 ALT 8 U/L (7-52) 03/19/18 20:25 Alkaline Phosphatase 98 U/L (34-104) 03/19/18 20:25 Total Protein 7.1 gm/dL (6.0-8.3) 03/19/18 20:25 Albumin 4.0 gm/dL (4.2-5.5) L 03/19/18 20:25 Globulin 3.1 gm/dL 03/19/18 20:25 Albumin/Globulin Ratio 1.3 (1.0-1.8) 03/19/18 20:25 Triglycerides 215 mg/dL (<150) H 03/19/18 20:25 Cholesterol 107 mg/dL (<200) 03/19/18 20:25 LDL Cholesterol Direct 63 mg/dL (75-193) L 03/19/18 20:25 HDL Cholesterol 25 mg/dL (23-92) 03/19/18 20:25 TSH 2.68 uIU/ml (0.34-5.60) 03/19/18 20:25 - Physical Exam Vitals and I&O: Vital Signs Temp 97.5 F 03/27/18 06:19 Pulse 62 03/27/18 07:22 Resp 16 03/27/18 07:22 BP 112/67 03/27/18 06:19 Pulse Ox 98 03/27/18 07:22 Intake & Output 03/26/18 03/27/18 03/27/18 18:59 06:59 18:59 Intake Total 120 Balance 120 Intake: Oral 120 Other: # Voids 2 3 # Bowel Movements 3 Active Medications: Current Medications Acetaminophen (Tylenol) 650 mg PO Q4HR PRN PRN Reason: MILD PAIN 1-3 AND FEVER>101.0F Stop: 05/18/18 23:44 Acetaminophen (Tylenol Extra Strength) 1,000 mg PO Q4HR PRN PRN Reason: Pain (Moderate) 4-7 Stop: 05/18/18 23:44 Al Hydrox/Mg Hydrox/Simethicone (Maalox) 30 ml PO Q4HR PRN PRN Reason: GI DISTRESS Stop: 05/18/18 23:31 Albuterol/Ipratropium (Duoneb Neb) 3 ml HHN Q6HR PRN PRN Reason: Shortness of Breath Stop: 05/18/18 23:44 Donepezil HCl (Aricept) 10 mg PO HS [facility] Stop: 05/19/18 20:59 Last Admin: 03/26/18 20:21 Dose: 10 mg Escitalopram Oxalate (Lexapro) 10 mg PO DAILY [facility]; Protocol Stop: 05/24/18 08:59 Last Admin: 03/26/18 10:00 Dose: 10 mg Lorazepam (Ativan) 0.5 mg PO Q4HR PRN; Protocol PRN Reason: Agitation Stop: 04/18/18 23:31 Last Admin: 03/24/18 16:24 Dose: 0.5 mg Magnesium Hydroxide (Milk Of Magnesia) 30 ml PO HS PRN PRN Reason: Constipation Megestrol Acetate (Megace) 400 mg PO DAILY [facility] Stop: 05/19/18 08:59 Last Admin: 03/26/18 10:00 Dose: 400 mg Memantine (Namenda) 5 mg PO BID [facility] Stop: 05/19/18 08:59 Last Admin: 03/26/18 18:00 Dose: 5 mg Multivitamins/Vitamin C (Theragran) 1 tab PO DAILY [facility] Stop: 05/19/18 08:59 Last Admin: 03/26/18 10:00 Dose: 1 tab Olanzapine (Zyprexa) 10 mg PO HS [facility]; Protocol Stop: 05/19/18 20:59 Last Admin: 03/26/18 20:21 Dose: 10 mg Olanzapine (Zyprexa) 5 mg PO DAILY [facility]; Protocol Stop: 05/20/18 08:59 Last Admin: 03/26/18 10:00 Dose: 5 mg Pantoprazole Sodium (Protonix) 40 mg PO QDAC [facility] Stop: 05/19/18 07:29 Last Admin: 03/27/18 06:30 Dose: 40 mg Polyethylene Glycol (Miralax) 17 gm PO DAILY [facility] Stop: 05/19/18 08:59 Last Admin: 03/26/18 10:00 Dose: 17 gm Senna (Senna) 8.6 mg PO HS [facility] Stop: 05/19/18 20:59 Last Admin: 03/26/18 20:21 Dose: 8.6 mg Zolpidem Tartrate (Ambien) 5 mg PO HS PRN PRN Reason: Insomnia Stop: 05/18/18 23:31 Last Admin: 03/26/18 20:21 Dose: 5 mg General: other (awake ,anxious) HEENT: NC/AT Neck: Supple Lungs: CTAB Cardiovascular: RRR, Normal S1, Normal S2 Abdomen: soft, non-tender Extremities: clear, edema Internal Medicine Assmt/Plan - Assessment Assessment: dementia oa gerd - Plan Plan: as per psych will monitor Nutritional Asmnt/Malnutr-PDOC - Dietary Evaluation Malnutrition Findings (Please click <Entered> for more info): Nutritional Asmnt/Malnutrition Start: 03/23/18 12: 57 Text: Status: Complete Freq: Protocol: Document 03/23/18 12:58 SHWETA (Rec: 03/23/18 13:17 SHWETA MCCALLUM) Nutritional Asmnt/Malnutrition Patient General Information Nutritional Screening Moderate Risk Diagnosis psychosis Pertinent Medical Hx/Surgical Hx PUD/GERD, osteoarthritis, dementia, s/p pneumonia, psychosis, anxiety, BPH, cataracts Subjective Information Pt sleeping at time of visit. Nursing noted PO intake: 75- 100%. Current Diet Order/ Nutrition Support regular Pertinent Medications megace, theragran, protonix, miralax, senna, zyprexa Pertinent Labs 03/19: glucose 128, Cl 110, Alb 4.0, triglycerides 215 Nutritional Hx/Data Height 1.8 m Height (Calculated Centimeters) 180.3 Current Weight (lbs) 83.915 kg Weight (Calculated Kilograms) 83.9 Weight (Calculated Grams) 06728.6 Barto Body Weight 172 lb Body Mass Index (BMI) 25.7 Weight Status Overweight GI Symptoms GI Symptoms None Last BM 03/22 Difficult in: None Food Allergies No Skin Integrity/Comment: diana castillo 16 Current %PO Good (75-100%) Estimated Nutritional Goals BEE in Kcals: Using Current wt Calories/Kcals/Kg 23-27 Kcals Calculated 5291-6076 Protein: Using Current wt Protein g/k.8-1 Protein Calculated 67-84 g Fluid: ml 8395-9977 (1 ml/kcal) Nutritional Problem No current Nutrition Prob Problem no nutrition dx at this time Malnutrition Alert Is there a minimum of two criteria No selected? Query Text:Check all the applicable criteria. A minimum of two criteria are recommended for diagnosis of either severe or non-severe malnutrition. Malnutrition Related to Morbid Obesity Malnutrition related to morbid obesity No Intervention/Recommendation Comments 1. Continue with regular diet as ordered 2. Monitor PO intake, wt, labs and skin integrity 3. F/U as low risk in 7 days, 03/30 Expected Outcomes/Goals Expected Outcomes/Goals 1. PO intake to continue meeting at least 75% of all meals 2. Wt stability, skin to remain intact, labs to approach normal limits Reviewed by Zofia Winn RD
[2018-03-27] MEDS: Multivitamin Tab PO SCH (10:17)
[2018-03-27] MEDS: POLYETHYLENE GLYCOL 3350 17 GM PACK PO SCH (10:45)
[2018-03-28] MEDS: Multivitamin Tab PO SCH (08:50)
[2018-03-28] MEDS: Pantoprazole 40 mg EC Tab PO SCH (08:51)
[2018-03-28] MEDS: POLYETHYLENE GLYCOL 3350 17 GM PACK PO SCH (10:44)
--- NOTE | 2018-03-28 11:28 | Discharge Summary ---
DATE OF DISCHARGE: 03/27/2018 SUBJECTIVE: Chart reviewed and the patient interviewed. Also, discussed the patient's condition with the staff and reviewed records and labs. AGE: 67. SEX: Male. PHYSICIAN: Dr. Alvarez. FINAL DIAGNOSIS: PRIMARY DIAGNOSIS: Unspecified psychosis. SECONDARY DIAGNOSIS: Dementia, moderate to severe, with psychotic features. REASON FOR HOSPITALIZATION: The patient was admitted to the hospital because of confusion and because of agitation in [facility] where the patient is living. Also, was confused and unable to follow directions. HOSPITAL COURSE: The patient continued to be agitated and in irritable mood. The patient also was unable to follow directions. The patient was given Zyprexa and the dose adjusted to 5 mg in the morning and 10 mg at bedtime. Also, Namenda dose adjusted to 5 mg twice a day. The patient also at times seems to be depressed and Lexapro in a dose of 10 mg every day helped the patient's mood. The patient was less aggressive and less agitated. The patient was not suicidal or homicidal, and easier to redirect him and the patient was discharged back to [place]. PHYSICAL EXAMINATION: The patient showed no major medical problems and Dr. Bryant monitored his condition closely. AFTER-DISCHARGE PLANS: The patient discharged from the hospital and returned to [place] with plans for outpatient treatment there. EXPECTED OUTCOME AFTER DISCHARGE: Fair if the patient continues with his outpatient treatment and follow up with discharge plans. JOB# [id number]
--- NOTE | 2018-03-29 04:37 | Progress Notes ---
DATE: 03/28/2018 SUBJECTIVE: The patient was seen in his room. The patient appears to be comfortable, but guarded and easily gets frustrated. Otherwise, the patient is in no acute distress. OBJECTIVE: VITAL SIGNS: Temperature 97.6, heart rate 64, blood pressure 131/70, respirations of 18 and 100% on room air. HEENT: Head is atraumatic, normocephalic. Eyes: Bilateral conjunctivae are clear. Bilateral pupils equal, round and reactive. NECK: Supple. No JVD. CARDIOVASCULAR: S1 and S2 without murmur. PULMONARY: Clear to auscultation. GASTROINTESTINAL: Soft and nontender without guarding. Positive bowel sounds. MUSCULOSKELETAL: No clubbing. No cyanosis noted. ASSESSMENT: 1. Dementia. 2. Osteoarthritis. 3. Gastroesophageal reflux disease. PLAN: We will keep the patient inpatient to Psychiatric Unit. We will follow up with a psychiatrist to monitor the patient's condition and behavior. Treatment plans were discussed with the patient's nurse. Treatment plans were discussed with Dr. Bryant. JOB# [id number]
--- NOTE | 2018-03-29 06:20 | Progress Notes ---
DATE: 03/28/2018 The patient was supposed to be discharged yesterday and the patient was not discharged and excuse was that no hospice social worker available to discharge the patient, although nurse could have done that easily. I was notified with the cancellation of the discharge. Hopefully, the patient will be able to be discharged today. JOB# [id number]
--- NOTE | 2018-03-29 06:24 | Progress Notes ---
DATE: 03/27/2018 This is late dictation for yesterday. Chart reviewed. The patient was supposed to be discharged yesterday and I dictated discharge summary yesterday, but patient did not leave with excuse that there was no case mgr to discharge the patient, but at the same time, the patient was not discharged and there was no fitness sales consultant to discharge and I dictated discharge summary on the case identification for that. JOB# [id number]
[2018-03-29] MEDS: Pantoprazole 40 mg EC Tab PO SCH (06:43)
[2018-03-29] MEDS: POLYETHYLENE GLYCOL 3350 17 GM PACK PO SCH (08:34)
[2018-03-29] MEDS: Multivitamin Tab PO SCH (08:46)
--- NOTE | 2018-03-29 11:23 | Internal Medicine Prog Note ---
Internal Medicine Subjective - Subjective Patient seen and examined:: chart reviewed Patient is:: awake, other (comfortable ,no distress) Per staff patient has:: no adverse event, tolerating meds Internal Medicine Objective - Results Result Diagrams: 03/19/18 20:20 03/19/18 20:25 Recent Labs: Laboratory Last Values WBC 7.8 Th/cmm (4.8-10.8) 03/19/18 20:20 RBC 4.25 Mil/cmm (3.80-5.80) 03/19/18 20:20 Hgb 13.0 gm/dL (12-16) 03/19/18 20:20 Hct 37.6 % (41.0-60) L 03/19/18 20:20 MCV 88.7 fl (80-99) 03/19/18 20:20 MCH 30.6 pg (27.0-31.0) 03/19/18 20:20 MCHC Differential 34.5 pg (28.0-36.0) 03/19/18 20:20 RDW 12.9 % (11.5-20.0) 03/19/18 20:20 Plt Count 268 Th/cmm (150-400) 03/19/18 20:20 MPV 6.6 fl 03/19/18 20:20 Neutrophils % 70.2 % (40.0-80.0) 03/19/18 20:20 Lymphocytes % 19.8 % (20.0-50.0) L 03/19/18 20:20 Monocytes % 6.0 % (2.0-10.0) 03/19/18 20:20 Eosinophils % 3.2 % (0.0-5.0) 03/19/18 20:20 Basophils % 0.8 % (0.0-2.0) 03/19/18 20:20 Sodium 141 mEq/L (136-145) 03/19/18 20:25 Potassium 3.6 mEq/L (3.5-5.1) 03/19/18 20:25 Chloride 110 mEq/L (98-107) H 03/19/18 20:25 Carbon Dioxide 22.7 mEq/L (21.0-31.0) 03/19/18 20:25 Anion Gap 11.9 (7.0-16.0) 03/19/18 20:25 BUN 24 mg/dL (7-25) 03/19/18 20:25 Creatinine 1.3 mg/dL (0.7-1.3) 03/19/18 20:25 Est GFR ( Amer) > 60.0 ml/min (>90) 03/19/18 20:25 Est GFR (Non-Af Amer) 58.5 ml/min 03/19/18 20:25 BUN/Creatinine Ratio 18.5 03/19/18 20:25 Glucose 128 mg/dL (70-105) H 03/19/18 20:25 Calcium 9.2 mg/dL (8.6-10.3) 03/19/18 20:25 Total Bilirubin 0.3 mg/dL (0.3-1.0) 03/19/18 20:25 AST 15 U/L (13-39) 03/19/18 20:25 ALT 8 U/L (7-52) 03/19/18 20:25 Alkaline Phosphatase 98 U/L (34-104) 03/19/18 20:25 Total Protein 7.1 gm/dL (6.0-8.3) 03/19/18 20:25 Albumin 4.0 gm/dL (4.2-5.5) L 03/19/18 20:25 Globulin 3.1 gm/dL 03/19/18 20:25 Albumin/Globulin Ratio 1.3 (1.0-1.8) 03/19/18 20:25 Triglycerides 215 mg/dL (<150) H 03/19/18 20:25 Cholesterol 107 mg/dL (<200) 03/19/18 20:25 LDL Cholesterol Direct 63 mg/dL (75-193) L 03/19/18 20:25 HDL Cholesterol 25 mg/dL (23-92) 03/19/18 20:25 TSH 2.68 uIU/ml (0.34-5.60) 03/19/18 20:25 - Physical Exam Vitals and I&O: Vital Signs Temp 97.8 F 03/28/18 20:56 Pulse 67 03/29/18 08:29 Resp 16 03/29/18 08:29 BP 108/60 03/29/18 06:37 Pulse Ox 100 03/29/18 08:29 Intake & Output 03/28/18 03/29/1803/29/18 18:59 06:59 18:59 Intake Total 240 Output Total 1 Balance 239 Intake: Oral 240 Output: Urine/Stool Mix 1 Other: # Voids 1 # Bowel Movements 1 Active Medications: Current Medications Acetaminophen (Tylenol) 650 mg PO Q4HR PRN PRN Reason: MILD PAIN 1-3 AND FEVER>101.0F Stop: 05/18/18 23:44 Acetaminophen (Tylenol Extra Strength) 1,000 mg PO Q4HR PRN PRN Reason: Pain (Moderate) 4-7 Stop: 05/18/18 23:44 Al Hydrox/Mg Hydrox/Simethicone (Maalox) 30 ml PO Q4HR PRN PRN Reason: GI DISTRESS Stop: 05/18/18 23:31 Albuterol/Ipratropium (Duoneb Neb) 3 ml HHN Q6HR PRN PRN Reason: Shortness of Breath Stop: 05/18/18 23:44 Donepezil HCl (Aricept) 10 mg PO HS [facility] Stop: 05/19/18 20:59 Last Admin: 03/28/18 21:30 Dose: 10 mg Escitalopram Oxalate (Lexapro) 10 mg PO DAILY [facility]; Protocol Stop: 05/24/18 08:59 Last Admin: 03/29/18 08:33 Dose: 10 mg Magnesium Hydroxide (Milk Of Magnesia) 30 ml PO HS PRN PRN Reason: Constipation Megestrol Acetate (Megace) 400 mg PO DAILY [facility] Stop: 05/19/18 08:59 Last Admin: 03/29/18 08:33 Dose: 400 mg Memantine (Namenda) 5 mg PO BID [facility] Stop: 05/19/18 08:59 Last Admin: 03/29/18 08:34 Dose: 5 mg Multivitamins/Vitamin C (Theragran) 1 tab PO DAILY [facility] Stop: 05/19/18 08:59 Last Admin: 03/29/18 08:46 Dose: 1 tab Olanzapine (Zyprexa) 10 mg PO HS [facility]; Protocol Stop: 05/19/18 20:59 Last Admin: 03/28/18 21:30 Dose: 10 mg Olanzapine (Zyprexa) 5 mg PO DAILY [facility]; Protocol Stop: 05/20/18 08:59 Last Admin: 03/29/18 08:34 Dose: 5 mg Pantoprazole Sodium (Protonix) 40 mg PO QDAC [facility] Stop: 05/19/18 07:29 Last Admin: 03/29/18 06:43 Dose: 40 mg Polyethylene Glycol (Miralax) 17 gm PO DAILY [facility] Stop: 05/19/18 08:59 Last Admin: 03/29/18 08:34 Dose: 17 gm Senna (Senna) 8.6 mg PO HS [facility] Stop: 05/19/18 20:59 Last Admin: 03/28/18 21:30 Dose: 8.6 mg General: other (awake ,anxious) HEENT: NC/AT Neck: Supple Lungs: CTAB Cardiovascular: RRR, Normal S1, Normal S2 Abdomen: soft, non-tender Extremities: clear, edema Internal Medicine Assmt/Plan - Assessment Assessment: dementia oa gerd - Plan Plan: as per psych will monitor Nutritional Asmnt/Malnutr-PDOC - Dietary Evaluation Malnutrition Findings (Please click <Entered> for more info): Nutritional Asmnt/Malnutrition Start: 03/23/18 12: 57 Text: Status: Complete Freq: Protocol: Document 03/23/18 12:58 SHWETA (Rec: 03/23/18 13:17 SHWETA MCCALLUM) Nutritional Asmnt/Malnutrition Patient General Information Nutritional Screening Moderate Risk Diagnosis psychosis Pertinent Medical Hx/Surgical Hx PUD/GERD, osteoarthritis, dementia, s/p pneumonia, psychosis, anxiety, BPH, cataracts Subjective Information Pt sleeping at time of visit. Nursing noted PO intake: 75- 100%. Current Diet Order/ Nutrition Support regular Pertinent Medications megace, theragran, protonix, miralax, senna, zyprexa Pertinent Labs 03/19: glucose 128, Cl 110, Alb 4.0, triglycerides 215 Nutritional Hx/Data Height 1.8 m Height (Calculated Centimeters) 180.3 Current Weight (lbs) 83.915 kg Weight (Calculated Kilograms) 83.9 Weight (Calculated Grams) 9[address]99.6 [place] Body Weight 172 lb Body Mass Index (BMI) 25.7 Weight Status Overweight GI Symptoms GI Symptoms None Last BM 03/22 Difficult in: None Food Allergies No Skin Integrity/Comment: intact, diana 16 Current %PO Good (75-100%) Estimated Nutritional Goals BEE in Kcals: Using Current wt Calories/Kcals/Kg 23-27 Kcals Calculated 9800-8538 Protein: Using Current wt Protein g/k.8-1 Protein Calculated 67-84 g Fluid: ml 8515-3780 (1 ml/kcal) Nutritional Problem No current Nutrition Prob Problem no nutrition dx at this time Malnutrition Alert Is there a minimum of two criteria No selected? Query Text:Check all the applicable criteria. A minimum of two criteria are recommended for diagnosis of either severe or non-severe malnutrition. Malnutrition Related to Morbid Obesity Malnutrition related to morbid obesity No Intervention/Recommendation Comments 1. Continue with regular diet as ordered 2. Monitor PO intake, wt, labs and skin integrity 3. F/U as low risk in 7 days, 03/30 Expected Outcomes/Goals Expected Outcomes/Goals 1. PO intake to continue meeting at least 75% of all meals 2. Wt stability, skin to remain intact, labs to approach normal limits Reviewed by Zoifa Winn RD
--- NOTE | 2018-03-30 05:25 | Progress Notes ---
DATE: 03/27/2018 SUBJECTIVE: Chart reviewed and the patient interviewed. Also, discussed the patient's condition with the staff and reviewed records and labs. The patient is supposed to be discharged 3 days ago and I dictated the discharge summary and the patient is still in the hospital and today I have an excuse from casey saw operator saying that she cannot discharge the patient until they have the conservator in public office to discharge the patient and I agreed to discharge the patient. Although I informed her that the place where he came from is willing to take him back and no need to wait for approval for the last 3 days for something like this, yet she told me that she is going to report her supervisor [employer] and up till this dictation I did not hear anything yet. The patient supposed to be discharged and no major behavior problems with the patient in the hospital. JOB# [id number]
[2018-03-30] MEDS: Pantoprazole 40 mg EC Tab PO SCH (06:54)
--- NOTE | 2018-03-30 09:23 | Progress Notes ---
DATE: 03/24/2018 SUBJECTIVE: The patient is very confused, disoriented, in the hospital with increased agitation, had been coming from [place]. The patient is AO to name, does not know where he is or what is going on, mostly in his room, impulsive, unpredictable, seen by Dr. Alvarez yesterday. MEDICATIONS: Noted. ASSESSMENT: The patient is still angry, irritable at times, very confused. We will continue to monitor. The patient with ongoing symptoms. Ongoing concerns about impulsivity. JOB# [id number]
[2018-03-30] MEDS: POLYETHYLENE GLYCOL 3350 17 GM PACK PO SCH (09:50)
[2018-03-30] MEDS: Multivitamin Tab PO SCH (09:50)
--- NOTE | 2018-03-31 00:40 | Progress Notes ---
DATE: 03/30/2018 Case was discussed with staff of the patient, reviewed records. This is a well-known case to me as I have seen him before covering for Dr. Alvarez. The patient according to the staff has discharge order by Dr. Alvarez yesterday. Currently, they are waiting for the conservator in public office to discharge the patient and Dr. Alvarez agreed to discharge the patient though the place was willing to take him back and no need for to wait for approval and that has been going on for a few days and the staff have the approval to discharge the patient and so currently no side effects with the medication and the patient was supposed to follow up with the psychiatrist, primary care physician and therapist. The patient denies any current intent to harm himself or anybody. He is more or less at his basic level of functioning. He is demented, confused, Aricept 10 mg daily, Lexapro 10 mg daily, olanzapine 10 mg at bedtime, 5 mg in the morning and the patient hopefully will be discharged ____. JOB# [id number]
== END 2018-03-30 14:25 | DRG 885 ==
LOC: ER 19:53 → GERO2 21:20 → ER 22:11 → GERO 03-20 17:10
PROVIDERS: ADMIT Psychiatry & Neurology Psychiatry; ATTEND Psychiatry & Neurology Psychiatry
DX: F29 Unspecified psychosis not due to a substance or known physiological condition (principal); F03.91 Unspecified dementia, unspecified severity, with behavioral disturbance; K21.9 Gastro-esophageal reflux disease without esophagitis; N40.0 Benign prostatic hyperplasia without lower urinary tract symptoms; F41.9 Anxiety disorder, unspecified; J44.9 Chronic obstructive pulmonary disease, unspecified; M19.90 Unspecified osteoarthritis, unspecified site; R53.1 Weakness; H26.9 Unspecified cataract; Z88.0 Allergy status to penicillin
CPT/HCPCS: 36415-UA; 80053-TC; 80061-TC; 83036-90; 84443-TC; 85025-TC; 86592-TC; 93005; 94760; J7051; Z7610